=== PATIENT | female | born 1970 | race Caucasian/White ===

== ENCOUNTER → 2019-01-14 | Outpatient (CLI) | payer OTHER ==
--- NOTE | 2019-01-14 16:57 | XR ---
PROCEDURE: XR shoulder complete LT - 3V DATE AND TIME: 01/14/2019 4:34 PM CLINICAL INDICATION: Pain after injury TECHNIQUE: Department protocol COMPARISON: None FINDINGS: There is no fracture or malalignment. The soft tissues are unremarkable. IMPRESSION: 1) NO ACUTE PROCESS. 2) INCIDENTAL FINDING: Left 1st mid-rib expansile focus, likely remodeled remote fracture. Traumatic history corroboration a nd/or prior outside imaging comparisons - will add specificity.
== END | disposition home or self-care (01) ==
LOC: RADXRMAIN 16:15
PROVIDERS: ATTEND Emergency Medicine
DX: S43.402A Unspecified sprain of left shoulder joint, initial encounter (principal)

== ENCOUNTER → 2019-02-24 | Outpatient (CLI) | payer OTHER ==
--- NOTE | 2019-02-24 16:55 | XR ---
EXAMINATION TYPE: XR cervical spine limited DATE OF EXAM: 02/24/2019 COMPARISON: NONE HISTORY: 48-year-old female with neck pain TECHNIQUE: 3 views FINDINGS: Uncovertebral joint arthropathy mid cervical spine corresponding mild to moderate disc/endplate degen erative change particularly at C5-C7 levels. Reversal of the normal cervical lordosis but with preser ryan alignment. Normal odontoid view. IMPRESSION: Moderate spondylotic change particularly from C5 through C7 levels. Reversal of normal cervical lordo sis could be positional or due to muscle spasm.
== END ==
LOC: RADXRMAIN 13:22
PROVIDERS: ATTEND Family Medicine
DX: M47.812 Spondylosis without myelopathy or radiculopathy, cervical region (principal)
CPT/HCPCS: 72040